=== PATIENT | female | born 1990 | race African-American/Black ===

== ENCOUNTER 2016-05-08 10:25 | Emergency (ER) | payer OTHER ==
[~2016-05-08] VITALS: Ht 170.2 cm; Wt 110.0 kg
[2016-05-08] MEDS ORDERED: ALBU2.5V13 IH (10:28)
[2016-05-08 14:06] VITALS: BP 133/66
== END 2016-05-08 14:09 | disposition home or self-care (01) ==
LOC: ER 10:46
DX: O9A.211 Injury, poisoning and certain other consequences of external causes complicating pregnancy, first trimester (principal); O99.511 Diseases of the respiratory system complicating pregnancy, first trimester; Z3A.10 10 weeks gestation of pregnancy; R10.9 Unspecified abdominal pain; J45.909 Unspecified asthma, uncomplicated; V49.50XA Passenger injured in collision with unspecified motor vehicles in traffic accident, initial encounter; Y93.89 Activity, other specified; Y99.8 Other external cause status; Y92.89 Other specified places as the place of occurrence of the external cause
CPT/HCPCS: 81025; 99283